=== PATIENT | female | born 1940 | race Caucasian/White ===

== ENCOUNTER 2018-08-01 09:42 | Inpatient (IN) | payer MEDICARE ==
[~2018-08-01] VITALS: Ht 160 cm; Wt 85.3 kg
[~2018-08-01 09:42] MED LIST: ASPIRIN 8181 MG PO; ATENOLOL50 MG PO; BETIMOL0.25 % OP; BLOOD GLUCOSE TEST S SC; D32000 UNI1 PO; GLIMEPIRIDE4 MG PO; INDAPAMIDE2.5 MG PO; JANUVIA100 MG PO; LATANOPROST0.005 % OP; LISINOP/HCTZ1 TA1 PO; METFORMIN1000 MG PO; MONITOR SC; PAROXETINE20 MG PO; PERCOCET 5/321 COMBO PO; PERCOCET 5/325M1 TAB PO; PRAVASTATIN SOD40 MG PO; VITAMIN B-121000 MCG PO; VITAMIN D32000 UNIT PO
[2018-08-01 10:37] LABS: HEMATOCRIT 37.2 % (37.0-47.0); HEMOGLOBIN 12.9 g/dl (12.0-16.0); IMMATURE GRANULOCYTES 0.6 % (0.0-5.0); MEAN CORPUSCULAR HGB 27.7 pG CALC (26.0-32.0); MEAN CORPUSCULAR HGB CONC 34.7 g/L CALC (32.0-36.0); NEUT# 7.73 thou/uL (2.00-7.15); RED BLOOD COUNT 4.65 mill/uL (4.20-5.60); RED CELL DISTRI WIDTH 13.1 % (11.5-15.5)
[2018-08-01 11:07] LABS: ALBUMIN 3.9 g/dL (3.2-5.0); ALKALINE PHOSPHATASE 85 u/l (38-126); BILIRUBIN, TOTAL 0.8 mg/dL (0.0-1.4); BUN 10 mg/dL (8-23); BUN/CREATININE RATIO 19 (12-20 (CALC)); CARBON DIOXIDE 35 mmol/l (22-30); CREATININE 0.5 mg/dL (0.5-1.0); GFR > 60 ML/MIN (>=60 (CALC)); GFR FOR AFR.AMER. > 60 ML/MIN (>=60 (CALC)); POTASSIUM 2.9 mmol/l (3.5-5.1); TOTAL PROTEIN 6.8 g/dL (6.3-8.2)
[2018-08-01 11:08] LABS: ANION GAP 13 (6-22 (CALC)); CHLORIDE 81 mmol/l (95-108); SGOT/AST 86 u/l (9-36); SODIUM 126 mmol/l (137-146)
[2018-08-01 11:28] LABS: URINE BILIRUBIN - DIPSTICK NEGATIVE (NEGATIVE); URINE BLOOD DIPSTICK NEGATIVE (NEGATIVE); URINE COLOR YELLOW; URINE GLUCOSE - DIPSTICK 250 mg/dL (NEGATIVE); URINE KETONE 15 mg/dL (NEGATIVE); URINE LEUK ESTERASE NEGATIVE (NEGATIVE); URINE NITRITE - DIPSTICK NEGATIVE (Negative); URINE PH 7.5 (4.5-8.0); URINE PROTEIN - DIPSTICK NEGATIVE (NEG-TRACE)
[2018-08-01] MEDS ORDERED: ALLOPURINOL100 MG PO (12:04)
[2018-08-01] MEDS ORDERED: VICTOZA18 MG/3 ML SC (12:07)
[2018-08-01] MEDS ORDERED: TRESIBA FL100 UNIT/M SC (12:08)
[2018-08-01] MEDS ORDERED: ROPINIROLE0.5 MG PO (12:09)
[2018-08-01 13:30] VITALS: BP 170/70
[2018-08-01 16:22] VITALS: BP 175/79
[2018-08-01 17:00] LABS: BUN 8 mg/dL (8-23); BUN/CREATININE RATIO 18 (12-20 (CALC)); CARBON DIOXIDE 34 mmol/l (22-30); CHLORIDE 85 mmol/l (95-108); CREATININE 0.5 mg/dL (0.5-1.0); GFR > 60 ML/MIN (>=60 (CALC)); GFR FOR AFR.AMER. > 60 ML/MIN (>=60 (CALC)); SODIUM 130 mmol/l (137-146)
[2018-08-01 17:01] LABS: ANION GAP 15 (6-22 (CALC)); POTASSIUM 3.7 mmol/l (3.5-5.1)
[2018-08-01 19:24] VITALS: BP 149/69
[2018-08-01 23:51] VITALS: BP 178/86
[2018-08-02] VITALS (9 sets, daily range): BP systolic 122–173; BP diastolic 51–75
[2018-08-02 05:41] LABS: HEMATOCRIT 39.3 % (37.0-47.0); HEMOGLOBIN 13.4 g/dl (12.0-16.0); IMMATURE GRANULOCYTES 0.5 % (0.0-5.0); MEAN CELL VOLUME 81.2 fL CALC (80.0-100.0); MEAN CORPUSCULAR HGB 27.7 pG CALC (26.0-32.0); MEAN CORPUSCULAR HGB CONC 34.1 g/L CALC (32.0-36.0); NEUT# 8.82 thou/uL (2.00-7.15); RED BLOOD COUNT 4.84 mill/uL (4.20-5.60); RED CELL DISTRI WIDTH 13.2 % (11.5-15.5)
[2018-08-02 06:23] LABS: ALBUMIN 3.7 g/dL (3.2-5.0); ALKALINE PHOSPHATASE 69 u/l (38-126); ANION GAP 14 (6-22 (CALC)); BUN 8 mg/dL (8-23); BUN/CREATININE RATIO 19 (12-20 (CALC)); CARBON DIOXIDE 32 mmol/l (22-30); CHLORIDE 86 mmol/l (95-108); CREATININE 0.4 mg/dL (0.5-1.0); GFR > 60 ML/MIN (>=60 (CALC)); GFR FOR AFR.AMER. > 60 ML/MIN (>=60 (CALC)); LIPASE 78 u/l (23-300); POTASSIUM 3.2 mmol/l (3.5-5.1); SGOT/AST 114 u/l (9-36); SODIUM 129 mmol/l (137-146); TOTAL PROTEIN 6.4 g/dL (6.3-8.2)
[2018-08-02 06:28] LABS: AMYLASE < 30 u/l (30-110)
[2018-08-02 11:27] LABS: ANION GAP 18 (6-22 (CALC)); BUN 8 mg/dL (8-23); BUN/CREATININE RATIO 18 (12-20 (CALC)); CARBON DIOXIDE 29 mmol/l (22-30); CHLORIDE 85 mmol/l (95-108); CREATININE 0.4 mg/dL (0.5-1.0); GFR > 60 ML/MIN (>=60 (CALC)); GFR FOR AFR.AMER. > 60 ML/MIN (>=60 (CALC)); POTASSIUM 3.2 mmol/l (3.5-5.1); SODIUM 129 mmol/l (137-146)
[2018-08-02 13:40] LABS: ANION GAP 16 (6-22 (CALC)); BUN 8 mg/dL (8-23); BUN/CREATININE RATIO 19 (12-20 (CALC)); CARBON DIOXIDE 31 mmol/l (22-30); CHLORIDE 85 mmol/l (95-108); CREATININE 0.4 mg/dL (0.5-1.0); GFR > 60 ML/MIN (>=60 (CALC)); GFR FOR AFR.AMER. > 60 ML/MIN (>=60 (CALC)); POTASSIUM 3.7 mmol/l (3.5-5.1); SODIUM 128 mmol/l (137-146)
[2018-08-03] VITALS: BP 135/62
[2018-08-03 04:00] VITALS: BP 146/71
[2018-08-03 07:50] VITALS: BP 146/66
[2018-08-03] MEDS ORDERED: TRESIBA FL200 UNIT/M SC (11:08)
[2018-08-03 11:09] VITALS: BP 131/57
[2018-08-03] MEDS ORDERED: FLONASE AL50 MCG/ACT NAB (11:15)
[2018-08-03] MEDS ORDERED: PAXIL40 MG PO (11:15)
[2018-08-03 16:00] VITALS: BP 132/60
[2018-08-03 20:10] VITALS: BP 119/73
[2018-08-04] VITALS (7 sets, daily range): BP systolic 107–141; BP diastolic 50–69
[2018-08-04 05:29] LABS: ALBUMIN 3.3 g/dL (3.2-5.0); BUN 13 mg/dL (8-23); CARBON DIOXIDE 34 mmol/l (22-30); CHLORIDE 86 mmol/l (95-108); CREATININE 0.5 mg/dL (0.5-1.0); GFR > 60 ML/MIN (>=60 (CALC)); GFR FOR AFR.AMER. > 60 ML/MIN (>=60 (CALC)); SODIUM 130 mmol/l (137-146)
[2018-08-04 05:36] LABS: POTASSIUM 2.8 mmol/l (3.5-5.1)
[2018-08-05 03:51] VITALS: BP 129/56
[2018-08-05 05:44] LABS: HEMATOCRIT 35.6 % (37.0-47.0); HEMOGLOBIN 12.1 g/dl (12.0-16.0); IMMATURE GRANULOCYTES 0.7 % (0.0-5.0); MEAN CELL VOLUME 80.9 fL CALC (80.0-100.0); MEAN CORPUSCULAR HGB 27.5 pG CALC (26.0-32.0); NEUT# 7.08 thou/uL (2.00-7.15); RED BLOOD COUNT 4.4 mill/uL (4.20-5.60); RED CELL DISTRI WIDTH 13.2 % (11.5-15.5)
[2018-08-05 06:12] LABS: ALBUMIN 3.5 g/dL (3.2-5.0); ALKALINE PHOSPHATASE 92 u/l (38-126); ANION GAP 15 (6-22 (CALC)); BILIRUBIN, TOTAL 0.5 mg/dL (0.0-1.4); BUN 14 mg/dL (8-23); BUN/CREATININE RATIO 27 (12-20 (CALC)); CARBON DIOXIDE 35 mmol/l (22-30); CHLORIDE 85 mmol/l (95-108); CREATININE 0.5 mg/dL (0.5-1.0); GFR > 60 ML/MIN (>=60 (CALC)); GFR FOR AFR.AMER. > 60 ML/MIN (>=60 (CALC)); SGOT/AST 35 u/l (9-36); SODIUM 131 mmol/l (137-146); TOTAL PROTEIN 6.1 g/dL (6.3-8.2)
[2018-08-05 06:18] LABS: POTASSIUM 3.7 mmol/l (3.5-5.1)
[2018-08-05 08:05] VITALS: BP 122/53
[2018-08-05 11:29] VITALS: BP 118/51
[2018-08-05] MEDS ORDERED: FUROSEMIDE20 MG PO (13:44)
[2018-08-05] MEDS ORDERED: SOD CHLORIDE1 GM PO (13:44)
[2018-08-05] MEDS ORDERED: K-DUR/KLOR-CON20 MEQ PO (13:44)
[2018-08-05] MEDS ORDERED: [UNRECOGNIZED DRUG - OTHER] PO (13:46)
== END 2018-08-05 14:35 | disposition home or self-care (01) | DRG 645 ==
LOC: ED 09:42 → ED-I 11:47 → ED 12:18 → MS2 12:19
PROVIDERS: Emergency Medicine; Internal Medicine Nephrology; ADMIT Internal Medicine Nephrology; ATTEND Internal Medicine Nephrology
DX: E22.2 Syndrome of inappropriate secretion of antidiuretic hormone (principal); T43.225A Adverse effect of selective serotonin reuptake inhibitors, initial encounter; E87.6 Hypokalemia; E83.42 Hypomagnesemia; T46.5X5A Adverse effect of other antihypertensive drugs, initial encounter; E11.9 Type 2 diabetes mellitus without complications; I10 Essential (primary) hypertension; E55.9 Vitamin D deficiency, unspecified; D50.9 Iron deficiency anemia, unspecified; G25.81 Restless legs syndrome; F41.8 Other specified anxiety disorders; M10.9 Gout, unspecified; R63.1 Polydipsia; Z79.4 Long term (current) use of insulin
CPT/HCPCS: G0378; J1756; J3475

== ENCOUNTER 2018-08-09 09:46 | Emergency (ER) | payer MEDICARE ==
[~2018-08-09] VITALS: Ht 160 cm; Wt 87.7 kg
[~2018-08-09 09:46] MED LIST changes: +ALLOPURINOL100 MG PO; +FLONASE AL50 MCG/ACT NAB; +FUROSEMIDE20 MG PO; +K-DUR/KLOR-CON20 MEQ PO; +PAXIL40 MG PO; +ROPINIROLE0.5 MG PO; +SOD CHLORIDE1 GM PO; +TRESIBA FL100 UNIT/M SC; +TRESIBA FL200 UNIT/M SC; +VICTOZA18 MG/3 ML SC; +[UNRECOGNIZED DRUG - OTHER] PO
[2018-08-09 12:06] LABS: HEMATOCRIT 40.6 % (37.0-47.0); HEMOGLOBIN 13.1 g/dl (12.0-16.0); IMMATURE GRANULOCYTES 0.6 % (0.0-5.0); MEAN CELL VOLUME 84.4 fL CALC (80.0-100.0); MEAN CORPUSCULAR HGB 27.2 pG CALC (26.0-32.0); MEAN CORPUSCULAR HGB CONC 32.3 g/L CALC (32.0-36.0); NEUT# 7.39 thou/uL (2.00-7.15); RED BLOOD COUNT 4.81 mill/uL (4.20-5.60); RED CELL DISTRI WIDTH 13.7 % (11.5-15.5)
[2018-08-09 12:48] LABS: URINE BILIRUBIN - DIPSTICK NEGATIVE (NEGATIVE); URINE BLOOD DIPSTICK NEGATIVE (NEGATIVE); URINE COLOR YELLOW; URINE GLUCOSE - DIPSTICK NEGATIVE (NEGATIVE); URINE KETONE NEGATIVE (NEGATIVE); URINE NITRITE - DIPSTICK NEGATIVE (Negative); URINE PH 7.5 (4.5-8.0); URINE PROTEIN - DIPSTICK NEGATIVE (NEG-TRACE); URINE UROBILINOGEN - DIPSTICK 0.2 E.U./dL (0.2)
[2018-08-09 12:55] LABS: URINE LEUK ESTERASE SMALL (NEGATIVE)
[2018-08-09 12:56] LABS: URINE BACTERIA FEW hpf; URINE EPITHELIAL CELLS MODERATE EPI/hpf (0-FEW)
[2018-08-09] MEDS ORDERED: MELOXICAM7.5 MG PO (13:05)
[2018-08-09 13:11] LABS: ANION GAP 13 (6-22 (CALC)); BUN 19 mg/dL (8-23); BUN/CREATININE RATIO 32 (12-20 (CALC)); CARBON DIOXIDE 35 mmol/l (22-30); CHLORIDE 90 mmol/l (95-108); CREATININE 0.6 mg/dL (0.5-1.0); GFR > 60 ML/MIN (>=60 (CALC)); GFR FOR AFR.AMER. > 60 ML/MIN (>=60 (CALC)); POTASSIUM 4.2 mmol/l (3.5-5.1); SODIUM 134 mmol/l (137-146)
[2018-08-09] MEDS ORDERED: NITROFURANTN100 M2 PO (13:39)
[2018-08-09] MEDS ORDERED: PREDNISONE20 MG PO (13:39)
[2018-08-09] MEDS ORDERED: MAGNESIUM OXID500 M1 PO (13:42)
[2018-08-09 18:10] VITALS: BP 123/61
== END 2018-08-09 18:46 | disposition home or self-care (01) ==
LOC: ED 09:46
PROVIDERS: Family Medicine
DX: E83.42 Hypomagnesemia (principal); N39.0 Urinary tract infection, site not specified; M79.18 Myalgia, other site; I10 Essential (primary) hypertension; E11.9 Type 2 diabetes mellitus without complications; G25.81 Restless legs syndrome
CPT/HCPCS: J3475

== ENCOUNTER 2018-11-08 14:06 | Observation (INO) | payer MEDICARE ==
[~2018-11-08] VITALS: Ht 160 cm; Wt 84.0 kg
[~2018-11-08 14:06] MED LIST changes: +MAGNESIUM OXID500 M1 PO; +MELOXICAM7.5 MG PO; +NITROFURANTN100 M2 PO; +PREDNISONE20 MG PO
[2018-11-08 15:02] LABS: HEMATOCRIT 37.9 % (37.0-47.0); HEMOGLOBIN 12.1 g/dl (12.0-16.0); IMMATURE GRANULOCYTES 0.4 % (0.0-5.0); MEAN CORPUSCULAR HGB 27.1 pG CALC (26.0-32.0); MEAN CORPUSCULAR HGB CONC 31.9 g/L CALC (32.0-36.0); NEUT# 4.85 thou/uL (2.00-7.15); RED BLOOD COUNT 4.46 mill/uL (4.20-5.60); RED CELL DISTRI WIDTH 14.1 % (11.5-15.5)
[2018-11-08 15:15] LABS: ANION GAP 11 (6-22 (CALC)); BUN 8 mg/dL (8-23); BUN/CREATININE RATIO 16 (12-20 (CALC)); CARBON DIOXIDE 33 mmol/l (22-30); CHLORIDE 99 mmol/l (95-108); CREATININE 0.5 mg/dL (0.5-1.0); GFR > 60 ML/MIN (>=60 (CALC)); GFR FOR AFR.AMER. > 60 ML/MIN (>=60 (CALC)); POTASSIUM 3.7 mmol/l (3.5-5.1); SODIUM 139 mmol/l (137-146)
[2018-11-08] MEDS ORDERED: K-DUR/KLOR-CON20 MEQ PO (15:37)
[2018-11-08] MEDS ORDERED: SOD CHLORIDE1 GM PO (15:39)
[2018-11-08] MEDS ORDERED: FUROSEMIDE20 MG PO (15:40)
[2018-11-08 16:08] LABS: URINE BILIRUBIN - DIPSTICK NEGATIVE (NEGATIVE); URINE BLOOD DIPSTICK NEGATIVE (NEGATIVE); URINE COLOR YELLOW; URINE GLUCOSE - DIPSTICK NEGATIVE (NEGATIVE); URINE KETONE NEGATIVE (NEGATIVE); URINE LEUK ESTERASE NEGATIVE (NEGATIVE); URINE NITRITE - DIPSTICK NEGATIVE (Negative); URINE PROTEIN - DIPSTICK NEGATIVE (NEG-TRACE); URINE UROBILINOGEN - DIPSTICK 0.2 E.U./dL (0.2)
[2018-11-08 17:53] VITALS: BP 200/93
[2018-11-08 23:53] VITALS: BP 156/66
[2018-11-09 03:52] VITALS: BP 155/78
[2018-11-09 04:59] LABS: ANION GAP 14 (6-22 (CALC)); BUN 8 mg/dL (8-23); BUN/CREATININE RATIO 16 (12-20 (CALC)); CARBON DIOXIDE 31 mmol/l (22-30); CHLORIDE 98 mmol/l (95-108); CREATININE 0.5 mg/dL (0.5-1.0); GFR > 60 ML/MIN (>=60 (CALC)); GFR FOR AFR.AMER. > 60 ML/MIN (>=60 (CALC)); MAGNESIUM 1.6 mg/dL (1.6-2.3); POTASSIUM 3.3 mmol/l (3.5-5.1); SODIUM 139 mmol/l (137-146)
[2018-11-09 08:10] VITALS: BP 153/52
[2018-11-09 11:07] VITALS: BP 176/85
[2018-11-09 17:23] VITALS: BP 170/82
[2018-11-09 19:20] VITALS: BP 135/72
[2018-11-10 05:20] VITALS: BP 158/71
[2018-11-10 07:30] VITALS: BP 178/78
[2018-11-10 09:16] VITALS: BP 158/71
[2018-11-10] MEDS ORDERED: LISINOPRIL10 MG PO (09:33)
[2018-11-10] MEDS ORDERED: AMLODIPINE BESYL5 MG PO (09:33)
[2018-11-10] MEDS ORDERED: FIORICET PO (09:38)
== END 2018-11-10 11:35 | disposition home or self-care (01) ==
LOC: ED 14:06 → ED-I 16:30 → ED 16:47 → MS2 16:48
PROVIDERS: Family Medicine; ADMIT Internal Medicine; ATTEND Internal Medicine
DX: I16.0 Hypertensive urgency (principal); I10 Essential (primary) hypertension; E11.9 Type 2 diabetes mellitus without complications; G25.81 Restless legs syndrome; F32.9 Major depressive disorder, single episode, unspecified; Z79.4 Long term (current) use of insulin

== ENCOUNTER 2020-03-08 06:29 | Day surgery (SDC) | payer MEDICARE ==
[~2020-03-08] VITALS: Ht 160 cm; Wt 90.3 kg
[~2020-03-08 06:29] MED LIST changes: +AMLODIPINE BESYL5 MG PO; +FIORICET PO; +LISINOPRIL10 MG PO; +NORVASC5 M1 PO
[2020-03-08 11:38] VITALS: BP 132/71
== END 2020-03-08 12:00 | disposition home or self-care (01) ==
LOC: ORM 06:29
PROVIDERS: ATTEND Urology
PROC: 0TBB8ZX Excision of Bladder, Via Natural or Artificial Opening Endoscopic, Diagnostic (ICD-10-PCS; principal; 2020-03-08)
DX: C67.4 Malignant neoplasm of posterior wall of bladder (principal); C79.89 Secondary malignant neoplasm of other specified sites; D35.01 Benign neoplasm of right adrenal gland; E11.9 Type 2 diabetes mellitus without complications; I10 Essential (primary) hypertension; E78.5 Hyperlipidemia, unspecified; Z79.4 Long term (current) use of insulin; Z20.828 Contact with and (suspected) exposure to other viral communicable diseases
CPT/HCPCS: C1769; J1956; Q9967

== ENCOUNTER 2021-02-28 18:05 | Emergency (ER) | payer MEDICARE ==
[~2021-02-28] VITALS: Ht 160 cm; Wt 76.0 kg
[2021-02-28 19:44] LABS: HEMATOCRIT 37.2 % (37.0-47.0); HEMOGLOBIN 11.9 g/dl (12.0-16.0); IMMATURE GRANULOCYTES 0.1 % (0.0-5.0); MEAN CELL VOLUME 82.7 fL CALC (80.0-100.0); MEAN CORPUSCULAR HGB 26.4 pG CALC (26.0-32.0); RED BLOOD COUNT 4.5 mill/uL (4.20-5.60); RED CELL DISTRI WIDTH 14.5 % (11.5-15.5)
[2021-02-28 19:55] LABS: ALBUMIN 3.8 g/dL (3.2-5.0); ALKALINE PHOSPHATASE 78 u/l (38-126); ANION GAP 10 (6-22 (CALC)); BILIRUBIN, TOTAL 0.5 mg/dL (0.0-1.4); BUN 12 mg/dL (8-23); BUN/CREATININE RATIO 19 (12-20 (CALC)); CARBON DIOXIDE 32 mmol/l (22-30); CHLORIDE 100 mmol/l (95-108); CREATININE 0.6 mg/dL (0.5-1.0); GFR > 60 ML/MIN (>=60 (CALC)); GFR FOR AFR.AMER. > 60 ML/MIN (>=60 (CALC)); SGOT/AST 18 u/l (9-36); SODIUM 137 mmol/l (137-146); TOTAL PROTEIN 6.8 g/dL (6.3-8.2)
[2021-02-28] MEDS ORDERED: NAPROXEN500 MG PO (20:22)
[2021-02-28 20:35] VITALS: BP 146/67
== END 2021-02-28 20:35 | disposition home or self-care (01) ==
LOC: ED 18:05
PROVIDERS: Emergency Medicine
DX: S83.92XA Sprain of unspecified site of left knee, initial encounter (principal); M17.12 Unilateral primary osteoarthritis, left knee; E11.9 Type 2 diabetes mellitus without complications; I10 Essential (primary) hypertension; M10.9 Gout, unspecified; X58.XXXA Exposure to other specified factors, initial encounter; Z79.4 Long term (current) use of insulin

== ENCOUNTER 2022-07-17 11:04 | Observation (INO) | payer MEDICARE ==
[2022-07-17] VITALS (31 sets, daily range): BP systolic 91–179; BP diastolic 49–119
[~2022-07-17] VITALS: Ht 160 cm; Wt 83.5 kg
[~2022-07-17 11:04] MED LIST changes: +NAPROXEN500 MG PO; +OZEMPIC2 MG/1.5 M SC
[2022-07-17 11:42] LABS: BASO% 0.2 % (0-3); EOS% 2.4 % (0-8); HEMATOCRIT 44.2 % (37.0-47.0); IMMATURE GRANULOCYTES 0.3 % (0.0-5.0); LYMPH% 24.7 % (15-41); MEAN CELL VOLUME 82.6 fL CALC (80.0-100.0); MEAN CORPUSCULAR HGB 26.2 pG CALC (26.0-32.0); MEAN CORPUSCULAR HGB CONC 31.7 g/dL CAL (32.0-36.0); MONO% 10.2 % (2-13); NEUT# 5.61 thou/uL (2.00-7.15); NEUT% 62.2 % (42-76); RED BLOOD COUNT 5.35 mill/uL (4.20-5.60); RED CELL DISTRI WIDTH 13.2 % (11.5-15.5)
--- NOTE | 2022-07-17 11:48 | NUR ---
PT ARRIVED TO ER WITH CC OF DIZZINESS AND CHEST PAIN. PT A/OX2 NEEDS FREQUEST ORIENTATION, FREQUENTLY ASK REPEATED QUESTIONS. DOES NOT FOLLOW DIRECTIONS. DENIES SOB ON ROOM AIR. VITALS NOTED LEFT ARM 20G PATENT AND SECURE. EKG OBTAINED. ORTHO STATIC VITALS OBTAINED. MD NOTIFIED. AT BEDSIDE. FALL AND SAFETY PRECAUTIONS IN PLACE. CALL LIGHT WITHIN REACH.
[2022-07-17 11:49] LABS: ALBUMIN 4.3 g/dL (3.2-5.0); ALKALINE PHOSPHATASE 78 u/l (38-126); ANION GAP 15 (6-22 (CALC)); BILIRUBIN, TOTAL 0.5 mg/dL (0.02-1.3); BUN 16 mg/dL (8-23); BUN/CREATININE RATIO 16 (12-20 (CALC)); CARBON DIOXIDE 28 mmol/l (22-30); CHLORIDE 98 mmol/l (95-108); GFR FOR AFR.AMER. > 60 ML/MIN (>=60 (CALC)); GFR OTHER RACES 53 ML/MIN (>=60 (CALC)); POTASSIUM 4.4 mmol/l (3.5-5.1); SGOT/AST 24 u/l (9-36); SODIUM 137 mmol/l (137-146); TOTAL PROTEIN 7.6 g/dL (6.3-8.2)
--- NOTE | 2022-07-17 12:00 | NUR ---
PT TAKEN TO RADIOLOGY
--- NOTE | 2022-07-17 12:30 | NUR ---
PT RETURNED FROM RADIOLOGY
--- NOTE | 2022-07-17 13:00 | NUR ---
PT EDUCATED ON UROSTOMY BAG. NOTIFIED , SON ON THE PHONE, PT IN BED AND GIVEN DEMONSTRATION ON HOW TO CHANGE UROSTOMY BAG AND HOW TO APPLY IT. REPORTS GAVE THEM BAGS A YEAR AGO WHEN THE UROSTOMY WAS PLACED. STOMA RED AND SITE PAINFUL TO TOUCH PER PATIENT. PT ALSO REPORTS PAIN IN THE RIGHT GROIN AREA. REPORTS SHE WANTS TO TAKE HER PANTS OFF "BECAUSE IT HURTS" RIGHT GROIN ASSESSED NO EDEMA OR RASH NOTED. SITE CLEAN INTACT.
[2022-07-17 13:57] LABS: URINE BILIRUBIN - DIPSTICK NEGATIVE (NEGATIVE); URINE BLOOD DIPSTICK NEGATIVE (NEGATIVE); URINE COLOR YELLOW; URINE GLUCOSE - DIPSTICK NEGATIVE (NEGATIVE); URINE KETONE TRACE mg/dL (NEGATIVE); URINE LEUK ESTERASE NEGATIVE (NEGATIVE); URINE PROTEIN - DIPSTICK NEGATIVE (NEG-TRACE); URINE SPECIFIC GRAVITY <=1.005; URINE UROBILINOGEN - DIPSTICK 0.2 E.U./dL (0.2)
[2022-07-17 13:58] LABS: URINE NITRITE - DIPSTICK NEGATIVE (Negative)
--- NOTE | 2022-07-17 18:38 | NUR ---
PT CALLED AND NO ANSWER. PT CONCERNED FOR . REPORT CALLED TO SRIKAN[facility] STANLEY. [facility]
--- NOTE | 2022-07-17 18:55 | NUR ---
RECEIVED PATIENT TO ROOM 269 VIA STRETCHER. PATIENT AWAKE AND ALERT, BUT FORGETFUL. VSS, NO DISTRESS NOTED. INSTRUCTED ON USE OF BED CONTROLS AND CALL SYSTEM; WILL REQUIRE RE-INFORCEMENT. DENIES PAIN AT THIS TIME. CALL LIGHT WITHIN REACH.
--- NOTE | 2022-07-17 20:18 | NUR ---
Received bedside report from off going nurse. Head to toe assessment completed. Patient alert and mildly anxious. Able to be reassured and redirected. Denies pain or deiscomfort. Safety measures in place.
--- NOTE | 2022-07-17 22:07 | NUR ---
took patient glucose meter was 168 nurse notfied
--- NOTE | 2022-07-17 23:55 | NUR ---
Patient alert and concerned about urostomy. Patient exhibits some confusion regarding urostomy care. Educated and reassured. Denies pain or discomfort at this time. Safety measures in place.
--- NOTE | 2022-07-18 02:44 | NUR ---
Patient resting quietly in bed and appears to be sleeping. Call light within reach.
[2022-07-18 04:20] VITALS: BP 133/55
[2022-07-18 05:53] VITALS: BP 133/55
[2022-07-18 07:22] VITALS: BP 153/53
--- NOTE | 2022-07-18 07:37 | NUR ---
PT RESTING IN LOW FOWLERS POSITION.A/O TO SELF SOMECONFUSION NOTED. PT HEART RHYTHM ON TELE RESPIRATIONS ON ROOM AIR. IV SITE NOTED INFUSING WITH NS .URINARY STOMA NOTED CLEAR YELLOW URINE DRAINING. PT DENIES ADDITIONAL NEEDS AT THE TIME ALL SAFETY PRECAUTIONS IN PLACE.
[2022-07-18 10:50] VITALS: BP 147/57
--- NOTE | 2022-07-18 13:21 | NUR ---
PT EDUCATED ON HOW TO EMPTY UROSTOMY INTO CONTAINER. PT NEEDS REINFORCEMENT.
--- NOTE | 2022-07-18 15:45 | NUR ---
PT RESTING IN LOW FOWLERS POSITION ASSISSTED WITH CALL LIGHT PT STATED DID NOT REMEMBER HOW TO USE CALL LIGHT FOR TURINGIN ON TV PT EDUCATED NEEDS REINFORCEMENT. ALL SAFETY PRECAUTIONS IN PLACE.
[2022-07-18 19:06] VITALS: BP 165/63
--- NOTE | 2022-07-18 20:00 | NUR ---
PATIENT RESTING IN BED. REMAIN CONFUSED. CONTINOUSLY PRESSING THE CALL LIGHT AND DOES NOT REMEMBER WHAT SHE WANTED. RE-ORIENTED TO ROOM AND CALL LIGHT. CALL LIGHT IN REACH. CONT. TO MONITOR
[2022-07-19 04:00] VITALS: BP 153/58
[2022-07-19 04:26] VITALS: BP 153/58
[2022-07-19 05:30] LABS: HEMATOCRIT 40.5 % (37.0-47.0); HEMOGLOBIN 12.8 g/dl (12.0-16.0); MEAN CELL VOLUME 84.4 fL CALC (80.0-100.0); MEAN CORPUSCULAR HGB 26.7 pG CALC (26.0-32.0); MEAN CORPUSCULAR HGB CONC 31.6 g/dL CAL (32.0-36.0); RED BLOOD COUNT 4.8 mill/uL (4.20-5.60); RED CELL DISTRI WIDTH 13.3 % (11.5-15.5)
[2022-07-19 05:57] LABS: ALBUMIN 3.5 g/dL (3.2-5.0); ALKALINE PHOSPHATASE 61 u/l (38-126); ANION GAP 11 (6-22 (CALC)); BUN 9 mg/dL (8-23); BUN/CREATININE RATIO 15 (12-20 (CALC)); CARBON DIOXIDE 29 mmol/l (22-30); CHLORIDE 105 mmol/l (95-108); CREATININE 0.6 mg/dL (0.5-1.0); GFR FOR AFR.AMER. > 60 ML/MIN (>=60 (CALC)); GFR OTHER RACES > 60 ML/MIN (>=60 (CALC)); MAGNESIUM 1.4 mg/dL (1.6-2.3); POTASSIUM 3.9 mmol/l (3.5-5.1); SGOT/AST 19 u/l (9-36); SODIUM 140 mmol/l (137-146)
[2022-07-19 06:17] LABS: BILIRUBIN, TOTAL 0.2 mg/dL (0.02-1.3); TOTAL PROTEIN 5.9 g/dL (6.3-8.2)
[2022-07-19 06:46] VITALS: BP 133/48
--- NOTE | 2022-07-19 08:00 | NUR ---
PT LAYING IN BED WITH HOB UP. AWAKE, ALERT AND COFUSED. PT HAS NO C/O PAIN AT THIS TIME. TELE ON WITH ALL LEADS ATTACHED. UROSTOMY TO RIGHT,LWER ABD DRAINING CLEAR, YELLOW URINE. IV SITE TO RFA CLEAN AND INTACT WITH NS @ 100ML/HR. PT HAS CALL LIGHT WITHIN REACH AND ALL SAFETY MEASURES IN PLACE.
[2022-07-19 08:55] VITALS: BP 151/66
[2022-07-19 10:38] VITALS: BP 134/52
--- NOTE | 2022-07-19 12:00 | NUR ---
PT LAYING IN BED WITH HOB, DAUGHTER AT BEDSIDE. PT HAS NO CHANGE IN STATUS AT THIS TIME. CALL LIGHT WTIHIN REACH AND ALL SAFETY MEASURES IN PLACE.
--- NOTE | 2022-07-19 15:50 | NUR ---
Discharge instructions given. Patient verbalizes understanding of same. Discharged in stable condition via Wheelchair to Home with family. All belongings sent with pt.
== END 2022-07-19 15:54 | disposition home or self-care (01) ==
LOC: ED 11:04 → ED-I 12:30 → ED 16:07 → MS2 16:08
PROVIDERS: Family Medicine; ADMIT Internal Medicine; ATTEND Internal Medicine
DX: R07.9 Chest pain, unspecified (principal); G93.40 Encephalopathy, unspecified; I95.1 Orthostatic hypotension; J10.1 Influenza due to other identified influenza virus with other respiratory manifestations; I10 Essential (primary) hypertension; E11.9 Type 2 diabetes mellitus without complications; F32.A Depression, unspecified; M10.9 Gout, unspecified; G25.81 Restless legs syndrome; Z79.4 Long term (current) use of insulin; Z85.51 Personal history of malignant neoplasm of bladder; Z93.50 Unspecified cystostomy status; Z20.822 Contact with and (suspected) exposure to COVID-19
CPT/HCPCS: J1650; J3475; Q9967